=== PATIENT | male | born 1960 | race Caucasian/White ===

== ENCOUNTER → 2018-03-19 | Outpatient (CLI) | payer BC ==
[~2018-03-19] MED LIST: ASPI81CH5; TAB-TAB
--- NOTE | 2018-03-20 11:59 | RADRPT ---
EXAM DATE/TIME: 03/19/2018 00:00 [facility] COMPARISON : No previous studies available for comparison. INDICATIONS : Evaluate patient for RT renal biopsy and ablation treatement HISTORY OF PRESENT ILLNESS: Patient has known mass lesion in the right kidney that would be amenable to percutaneous treatment/bi opsy. Patient underwent biopsy at another institution. Was waiting for biopsy results before proceedi ng. 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 PLAN: RFA of right kidney mass. TIME SPENT: 20 minutes. Jonathon Blanchard MD on March 20, 2018 at 11:54 Board Certified Radiologist. This report was verified electronically.
== END ==
LOC: HRAD 18:47
PROVIDERS: ATTEND Urology
DX: N28.89 Other specified disorders of kidney and ureter (principal)